=== PATIENT | female | born 1940 | race Two or more races ===

== ENCOUNTER 2024-06-30 15:16 | Emergency (ER) | payer OTHER ==
[~2024-06-30] VITALS: Ht 157.5 cm; Wt 61.7 kg
[2024-06-30] MEDS ORDERED: VITAMIN D-40010 MCG PO (15:46)
== END 2024-06-30 17:17 ==
LOC: ER 15:19
DX: R60.0 Localized edema (principal); M25.561 Pain in right knee; M25.461 Effusion, right knee; M17.11 Unilateral primary osteoarthritis, right knee

== ENCOUNTER 2025-01-17 08:17 | Outpatient (CLI) | payer OTHER ==
[~2025-01-17 08:17] MED LIST: VITAMIN D-40010 MCG PO
== END 2025-01-17 08:22 | disposition home or self-care (01) ==
LOC: RAD 08:17
PROVIDERS: ATTEND Physical Medicine & Rehabilitation
DX: M25.511 Pain in right shoulder (principal); M25.512 Pain in left shoulder; M17.12 Unilateral primary osteoarthritis, left knee; M25.562 Pain in left knee